=== PATIENT | female | born 1950 | race Caucasian/White ===

== ENCOUNTER → 2016-07-16 | Outpatient (CLI) | payer BC ==
[~2016-07-16] MED LIST: ACYC-223 PO; ASTN; CHOL1000 PO; FLUT0.15 NAE; FSMD/70 PO; GARLIC PO; LACTTAB4 PO; Magnesium PO; OMEG10007 PO; ZINCCAP5 PO; allergy shots IM
[2016-07-16 14:12] VITALS: BP 114/69; PULSE 68; TEMP 36.5; O2SAT 98
--- NOTE | 2016-07-16 16:24 | Radiation Oncology Follow-Up ---
Radiation Oncology Follow-Up Date of Visit July 16, 2016. Reason For Visit One-month follow-up in cancer survivorship care plan Radiation Completion Date 06/18/16 hypofractionation Diagnosis (1) Intraductal carcinoma of left breast Status: Acute Onset Date: 03/18/2016 Stage: 0 Permanent Comment: Abnormal left breast mammogram Status post mammotome biopsy 03/18/2016 revealing DCIS grade 3 Estrogen receptor negative and progesterone receptor negative Status post left breast partial mastectomy 04/14/2016 Stage pTis NX MX G3 Status post completion of radiation therapy 06/18/2016 she received 5130 cGy. Utilizing hypo-fractionation. Last Edited By: Valerie Samaniego on Jun 29, 2016 11:12 History of Present Illness Ms. Mullins is a 65-year-old female with a possible remote family history of breast cancer. She has been followed with screening mammograms. Her most recent bilateral digital screening mammogram was on 03/13/2016. In the left breast at the 12 o'clock position a group of faint calcifications were seen on the CC view which were not evident on prior exams. They recommended Spot magnification views for further evaluation. Patient went to [facility] for further evaluation and diagnostic workup under the care of Dr. Lesa Alfonso. On 03/18/2016 the patient underwent a diagnostic mammogram of the left breast. This showed amorphous and mildly pleomorphic calcifications with grouped/clustered distribution seen in the left breast at the 12 o'clock position posterior depth. These were suspicious and a core biopsy was recommended for further evaluation. On 03/18/2016 patient underwent a mammotome biopsy of the left breast in the area of visible calcifications which revealed ductal carcinoma in situ, high nuclear grade without evidence of invasive carcinoma. The microcalcifications were associated with DCIS and benign ducts. A second mammotome biopsy from the left breast in an area without calcifications also revealed ductal carcinoma in situ, high nuclear grade without evidence of invasive carcinoma. Microcalcifications were also noted. Estrogen receptors were evaluated and were negative. Progesterone receptors were evaluated and were negative. The maximum size on the biopsy was 0.42 cm the architectural type was solid with comedo necrosis. Accession #: [id number]. Patient went on to have bilateral breast MRIs with and without contrast performed on 04/02/2016. The breast tissues were extremely dense. A non-mass enhancement in a focal distribution with clumped internal enhancement was seen in the left breast at the 12:00 middle depth position located 5 cm from the nipple. The area of diagnosed DCIS was felt to be under estimated on the mammogram and better appreciated on the MRI. The entire area measured 2.0 x 1.3 x 1.1 cm and is located 5 cm from the nipple seen in the middle/posterior third of the breast. The right breast showed no suspicious enhancements, masses or other abnormalities. There was no axillary adenopathy appreciated. Patient met with Dr. Alfonso to discuss surgical treatment options. The patient opted to proceed with a breast conserving therapy consisting of a left breast partial mastectomy. This procedure was performed on 04/14/2016. The left partial mastectomy specimen confirmed residual ductal carcinoma in situ with high nuclear grade. The area of involvement measured 1.4 x 1.2 x 1.0 cm. The mass was 0.3 cm from the posterior margin, 1 cm from the anterior margin, 1.3 cm from the inferior margin, 1.0 cm from the superior margin, greater than 1.5 cm and the medial margin and greater than 1 cm from the lateral margins. Final pathology was therefore pTis pNx ER negative and WI negative. Accession #: [id number]. We were asked to see this patient to review with her the potential role of adjuvant radiation. She underwent a CT simulation and was found to be a candidate for hypo- fractionated therapy. Radiation was completed 06/18/2013 she received 5130 cGy. Interim History She has been doing well over the past month. The skin irritation has steadily improved without difficulty. She continues to have a dark discoloration to the skin. She has noted no masses or tenderness and no change of the axilla. She said no swelling of her arm. She has been concerned about her diet. She is staying away from carbohydrates and sugars. She did lose 4 pounds. She has an irritation of the perineal area. She has been given prescriptions by her nurse practitioner as well as ENT for treatment of yeast infection. She has had previous left shoulder issues. She is having therapy and this is improving. Allergies Coded Allergies: Sulfa Antibiotics (Verified Allergy, Severe, Swelling, 05/06/16) Home Medications Scheduled Acyclovir (Zovirax), 800 MG PO BID Alendronate/Cholecalciferol (Fosamax+D 70MG/2800 Iu), 1 TABLET PO WK Azelastine Hcl (Astelin Nasal [place]), 1-2 SPRAYS NA BID Cholecalciferol (Vitamin D3), 10,000 UNITS PO DAILY Fish Oil ([place]-3), 1 CAP PO DAILY Fluticasone Propionate (Nasal) (Flonase Allergy Relief), 1 SPRAY MICHA DAILY Lactobacillus (Acidophilus), 1 TAB PO DAILY Zinc Gluconate (Zn-50), 1 CAP PO DAILY [Garlic Tab], 2-4 TABS PO DAILY [Magnesium], 2 TSP PO DAILY [allergy shots], 1 SYR IM UD Review of Systems Gastrointestinal: Symptoms: WNL Oral: Symptoms: No Problems Respiratory: Symptoms: WNL Urinary: Symptoms: WNL Skin: Symptoms: No Problems Breast: Right Upper Arm Measurement: 27.3 Right Mid Arm Measurement: 23.5 Right Wrist Measurement: 15.5 Left Upper Arm Measurement: 27.0 Left Mid Arm Measurement: 23.0 Left Wrist Measurement: 15.5 Arm Dominence: Right Physical Exam Vital Signs Date Time Temp Pulse Resp B/P Pulse Ox O2 Delivery O2 Flow Rate FiO2 07/16/16 14:12 36.5 68 16 114/69 98 Fatigue: None General Appearance: no apparent distress Eyes: normal inspection, EOMI ENT: normal ENT inspection, hearing grossly normal Neck: no adenopathy, thyroid normal Respiratory/Chest: lungs clear, no respiratory distress Breast: Breast examination reveals a well-healed incision of the left breast. There is resolving hyperpigmentation. There are no masses or tenderness no axillary adenopathy. She is no skin retractions. She does have a sensory nipple. Using the [place] score cosmesis she has a good outcome. The right breast showed no masses or tenderness and no axillary adenopathy. Cardiovascular: regular rate, rhythm, no gallop, no murmur Genitourinary - Female: Evaluation of the buttock vaginal area showed no erythema or discharge. Extremities: no pedal edema Neurologic/Psychiatric: no motor/sensory deficits, alert, normal mood/affect Skin: warm/dry Assessment & Plan Plan: We discussed the hyperpigmentation. This will steadily resolve over time. We discussed the skin irritation of the perineum. This appears to be healing with her current treatment. Today we completed a cancer survivorship care plan. A copy of the document was given to the patient. Digital diagnostic mammograms were ordered. The left breast imaging will be performed in 2 months. She'll then have bilateral mammography in 8 months. She is instructed to continue breast self examinations. We asked her to return to our office in 6 months. She may call if she has any questions or concerns in the interim. She'll continue regular follow-up with and her primary care physician. Total Time In Follow-Up I spent 20 minutes speaking to the patient and performed an examination. I spent 20 minutes reviewing information, preparing the survivorship document, and completing this note. Copy To Marlen Fagan; Mariaelena Barker M.D.; Lesa Alfonso M.D.
== END | disposition home or self-care (01) ==
LOC: C.ONC 14:04
PROVIDERS: ATTEND Physician Assistant Medical
DX: Z08 Encounter for follow-up examination after completed treatment for malignant neoplasm (principal); Z92.3 Personal history of irradiation; Z85.3 Personal history of malignant neoplasm of breast

== ENCOUNTER → 2016-09-16 | Outpatient (CLI) | payer BC ==
[~2016-09-16] MED LIST changes: -ACYC-223 PO; +ACYC-251 PO
--- NOTE | 2016-09-16 13:11 | MAMMOGRAPHY REPORT ---
UNILATERAL LEFT DIGITAL DIAGNOSTIC MAMMOGRAM TOMOSYNTHESIS WITH CAD: 09/16/2016 CLINICAL HISTORY: History of left breast cancer status post lumpectomy March 2016 as well as radiat ion therapy. The patient reports no current complaints. TECHNIQUE: Breast tomosynthesis in addition to standard 2D mammography was performed. Current study was also evaluated with a Computer Aided Detection (CAD) system. Left CC and MLO 2-D and tomosynthes is images and spot magnification left CC and ML views were obtained. COMPARISON: Comparison is made to exams dated: 03/18/2016 stereotactic biopsy, 03/18/2016 mammogram - [facility] 03/13/2016 mammogram, 03/11/2015 mammogram, and 03/05/2014 mammogra m - [facility]. BREAST COMPOSITION: The tissue of the left breast is heterogeneously dense, which may obscure small masses. FINDINGS: There are new post surgical changes in the left 12:00 breast status post lumpectomy, includ ing new density, architectural distortion, and surgical clips at the lumpectomy bed. A linear scar m arker denotes a scar on the left superior breast. The remainder of the left breast is stable compare d to prior exams, without suspicious masses, calcifications, or areas of architectural distortion not ed. Scattered benign-appearing calcifications are stable compared to multiple prior exams including the 2010 and 2009 exams. IMPRESSION: ACR-BI-RADS CATEGORY 3: PROBABLY BENIGN Expected posttreatment changes in the left breast, without mammographic evidence of malignancy in the left breast. Recommend bilateral diagnostic mammograms in 6 months, to reevaluate the left breast p osttreatment changes and for routine mammography of the right breast. The patient has been verbally notified of the results. Approximately 10% of breast cancers are not detected with mammography. A negative mammographic report should not delay biopsy if a clinically suggestive mass is present. Sheila Bishop M.D. ah/:09/16/2016 11:16:13 Associate Store Manager: Zulema PÉREZ([place])(M), [facility] letter sent: Personal History 3 BI-RADS Code: ACR-BI-RADS Category 3: Probably Benign
== END | disposition home or self-care (01) ==
LOC: C.MAMM 10:36
PROVIDERS: ATTEND Physician Assistant Medical
DX: D05.12 Intraductal carcinoma in situ of left breast (principal)

== ENCOUNTER → 2016-12-29 | Outpatient (CLI) | payer BC | END | disposition home or self-care (01) | LOC: C.LAB 08:57 | PROVIDERS: ATTEND Nutritionist | DX: R53.83 Other fatigue (principal) ==

== ENCOUNTER → 2017-01-21 | Outpatient (CLI) | payer BC ==
[~2017-01-21] MED LIST changes: +ACYC-223 PO; -ACYC-251 PO
[2017-01-21 14:26] VITALS: BP 106/68; PULSE 72; TEMP 36.7; O2SAT 94
--- NOTE | 2017-01-21 16:16 | Radiation Oncology Follow-Up ---
Radiation Oncology Follow-Up Date of Visit Jan 21, 2017. Reason For Visit Six-month follow-up Radiation Completion Date 06/18/16 Diagnosis (1) Intraductal carcinoma of left breast Status: Resolved Onset Date: 03/18/2016 Stage: 0 Permanent Comment: Abnormal left breast mammogram Status post mammotome biopsy 03/18/2016 revealing DCIS grade 3 Estrogen receptor negative and progesterone receptor negative Status post left breast partial mastectomy 04/14/2016 Stage pTis NX MX G3 Status post completion of radiation therapy 06/18/2016 she received 5130 cGy. Utilizing hypo-fractionation. Last Edited By: Valerie Samaniego on Jun 29, 2016 11:12 History of Present Illness Ms. Neely does not have a family history of breast cancer. She underwent routine bilateral screening mammograms. On 07/25/2015 there were no mammographic evidence of malignancies and was given a BI-RADS Category 2 with recommended repeat in one year. On 07/27/2016 patient underwent her annual screening. This showed an asymmetry in the upper outer middle one third of the right breast. Spot compression views and possible ultrasound were recommended. On 08/05/2016 patient underwent a unilateral right digital diagnostic mammogram and targeted right breast ultrasound. The spot compression views of the right upper outer quadrant demonstrated a persistent irregular 0.5 x 0.7 cm mass with associated architectural distortion in the upper outer middle one third of the right breast. Targeted ultrasound was performed at the upper outer quadrant of the right breast including the 12:00 axis. In the 11:30 position of the breast 2 cm from the nipple was a subtle ill-defined hypoechoic mass with possible associated architectural distortion measuring 3.7 x 3.4 x 5.7 mm. This was indeterminate and was given a BI-RADS Category 4B with recommended biopsy. On 08/25/2016 the patient underwent ultrasound-guided biopsies of the right breast. This was of the 5 mm ill-defined hypoechoic spiculated mass seen at the 11:30 position of the right breast. This revealed an infiltrating ductal carcinoma grade 2 of 3 with no in situ component identified. There was no perineural or lymphovascular space invasion identified. Estrogen receptors were positive (90%, strong). Progesterone receptors were positive (30%, moderate). HER-2/jamal was equivocal (2+). The stain for the HER-2/jamal showed complete membrane staining in the majority of cells but strong complete membrane staining is present in less than 10% of the cells. This was interpreted as equivocal. HER-2/jamal was evaluated by FISH analysis. Unfortunately the tumor cells were also equivocal for HER-2/jamal amplification by FISH analysis. Recommendation was to repeat this test on the final surgical pathologic specimen. Case: [id number]. Patient was seen by Dr. Mann reviewed treatment options with the patient. The decision was made to proceed with breast conserving therapy. Therefore patient was scheduled for a right breast partial mastectomy and sentinel node biopsy on 09/04/2016. The single sentinel lymph node was identified and was benign. The partial mastectomy specimen identified residual infiltrating ductal carcinoma. The tumor measured 1.0 x 0.7 x 0.6 cm. This was a Chrissy grade 2 of 3 lesion. There was no DCIS or LCIS identified. There was no lymphovascular invasion appreciated. The margins were negative for invasive carcinoma. The tumor extended to within 0.4 cm of the deep margin. The case was reevaluated for HER-2/jamal overexpression by FISH analysis. The tumor cells were again equivocal for HER-2/jamal oncogene amplification by FISH. Case: [id number]. The final AJCC pathologic staging was therefore a pt1b pN0(sn- ), ER positive, GA positive and HER-2/jamal equivocal. Oncotype DX score was found to be 17. Decision was to proceed then with radiation therapy. She had a CT simulation and was found to be a candidate for hypo-fractionation. Her treatment was completed 12/22/2016 she received 5130 cGy. The patient was seen by Dr. Rick Gallardo for evaluation and discussion of the role of adjuvant systemic therapy. He noted that there were an increased number of HER-2 copies but the ratio was not elevated suggesting amplification of centromere 17 as well. He therefore discussed an expanded chromosome 17 analysis due to the HER-2 equivocal results. He also ordered an Oncotype DX test. The Oncotype DX was found to be 17. Status post completion of radiation therapy 12/22/2016. She received 5130 cGy utilizing hypo-fractionation. Interim History She's been doing well over the past 6 months. She has noted some mild scar tissue in the area of her incision. She is doing light massage 2 times per week. She goes to gym on a regular basis and feels that there is a tightness in the upper portion of the breast towards the shoulder. This is felt when she is doing stretching exercises. She had seen the chiropractor and had an adjustment. He also recommended stretching exercises. She is up-to-date on mammography. She also had a recheck visit with the breast surgeon. She feels that there is mild residual tanning. Allergies Coded Allergies: Sulfa Antibiotics (Verified Allergy, Severe, Swelling, 05/06/16) Home Medications Scheduled Acyclovir (Zovirax), 800 MG PO BID Alendronate/Cholecalciferol (Fosamax+D 70MG/2800 Iu), 1 TABLET PO WK Azelastine Hcl (Astelin Nasal [place]), 1-2 SPRAYS NA BID Cholecalciferol (Vitamin D3), 10,000 UNITS PO DAILY Fish Oil ([place]-3), 1 CAP PO DAILY Fluticasone Propionate (Nasal) (Flonase Allergy Relief), 1 SPRAY MICHA DAILY Lactobacillus (Acidophilus), 1 TAB PO DAILY Zinc Gluconate (Zn-50), 1 CAP PO DAILY [Magnesium], 2 TSP PO DAILY [allergy shots], 1 SYR IM UD Review of Systems Gastrointestinal: Symptoms: WNL Oral: Symptoms: No Problems Respiratory: Symptoms: WNL Urinary: Symptoms: WNL Skin: Symptoms: No Problems Breast: Right Upper Arm Measurement: 25.0 Right Mid Arm Measurement: 22.0 Right Wrist Measurement: 15.5 Left Upper Arm Measurement: 24.5 Left Mid Arm Measurement: 20.5 Left Wrist Measurement: 15.5 Arm Dominence: Right Physical Exam Vital Signs Date Time Temp Pulse Resp B/P (MAP) Pulse Ox O2 Delivery O2 Flow Rate FiO2 01/21/17 14:26 36.7 72 18 106/68 94 Fatigue: None General Appearance: no apparent distress Eyes: normal inspection, EOMI ENT: normal ENT inspection, hearing grossly normal Neck: no adenopathy, thyroid normal Respiratory/Chest: lungs clear, no respiratory distress, no accessory muscle use Breast: Breast examination reveals accessary nipple on the left. There is slight hyperpigmentation. There are no masses or tenderness no axillary adenopathy. She is no skin retractions or nipple changes. Using the [place] score cosmesis she has a good outcome. The right breast showed no masses or tenderness and no axillary adenopathy. Cardiovascular: regular rate, rhythm, no gallop, no murmur Extremities: no pedal edema Neurologic/Psychiatric: no motor/sensory deficits, alert, normal mood/affect Skin: warm/dry Pain Management Pain Location: None Patient Preferred Pain Scale: 0 - 10 Additional Studies Patient: [facility] Rec: [id number] Address[address]: [address] Address2: Acct ID: [id number] Date: 1950 Sex: F Ref Phy: Lesa Alfonso M.D. Att Phy: Valerie Samaniego PA-C Mariah Phy: Marlen Fagan Inter Phy: Sheila Bishop MD [facility] Zip: [place] [address] SC: [id number] Report #: [id number] Tobacco Feeder Catcher: MAVIS Diagnosis: LEFT BREAST CA/ S/P RADIATION Service Date: 09/16/16 MNE: [id number] Ordering Dr: Valerie Samaniego PA-C CC: Valerie Samaniego PA-C CONF: DICTATED BY: Sheila Bishop MD MAMMOGRAPHY REPORT UNILATERAL LEFT DIGITAL DIAGNOSTIC MAMMOGRAM TOMOSYNTHESIS WITH CAD: 09/16/2016 CLINICAL HISTORY: History of left breast cancer status post lumpectomy March 2016 as well as radiation therapy. The patient reports no current complaints. TECHNIQUE: Breast tomosynthesis in addition to standard 2D mammography was performed. Current study was also evaluated with a Computer Aided Detection (CAD ) system. Left CC and MLO 2-D and tomosynthesis images and spot magnification left CC and ML views were obtained. COMPARISON: Comparison is made to exams dated: 03/18/2016 stereotactic biopsy, 03/18/2016 mammogram - [facility] 03/13/2016 mammogram, mammogram, and 03/05/2014 mammogram - [facility]. BREAST COMPOSITION: The tissue of the left breast is heterogeneously dense, which may obscure small masses. FINDINGS: There are new post surgical changes in the left 12:00 breast status post lumpectomy, including new density, architectural distortion, and surgical clips at the lumpectomy bed. A linear scar marker denotes a scar on the left superior breast. The remainder of the left breast is stable compared to prior exams, without suspicious masses, calcifications, or areas of architectural distortion noted. Scattered benign-appearing calcifications are stable compared to multiple prior exams including the 2011 and 2010 exams. IMPRESSION: ACR-BI-RADS CATEGORY 3: PROBABLY BENIGN Expected posttreatment changes in the left breast, without mammographic evidence of malignancy in the left breast. Recommend bilateral diagnostic mammograms in 6 months, to reevaluate the left breast posttreatment changes and for routine mammography of the right breast. The patient has been verbally notified of the results. Approximately 10% of breast cancers are not detected with mammography. A negative mammographic report should not delay biopsy if a clinically suggestive mass is present. Sheila Bishop M.D. ah/:09/16/2016 11:16:13 Quick Sketch Artist: Zulema PÉREZ([place])(M), [facility] letter sent: Personal History 3 BI-RADS Code: ACR-BI-RADS Category 3: Probably Benign Dictated by: Sheila Bishop MD Signed by: Sheila Bishop MD Assessment & Plan Plan: Continue with scheduled mammography. Continue regular follow-up with her primary care provider as well as breast surgeon. She'll continue the right massage therapy to the area of scar tissue. She also continue stretching exercises for her shoulder and chest wall. We asked her to return to our office in 1 year. She may call if she has any questions or concerns in the interim. Total Time In Follow-Up I spent 20 minutes the need to the patient performing examination. I spent 15 minutes reviewing information in completing this note. Copy To Marlen Fagan; Mariaelena Barker M.D.; Lesa Alfonso M.D.
== END | disposition home or self-care (01) ==
LOC: C.ONC 14:13
PROVIDERS: ATTEND Physician Assistant Medical
DX: Z08 Encounter for follow-up examination after completed treatment for malignant neoplasm (principal); Z92.3 Personal history of irradiation; Z85.3 Personal history of malignant neoplasm of breast

== ENCOUNTER → 2017-03-01 | Outpatient (CLI) | payer BC ==
[~2017-03-01] MED LIST changes: -GARLIC PO
== END | disposition home or self-care (01) ==
LOC: C.PAPS 11:17
PROVIDERS: ATTEND Obstetrics & Gynecology
DX: Z01.419 Encounter for gynecological examination (general) (routine) without abnormal findings (principal)

== ENCOUNTER → 2017-03-19 | Outpatient (CLI) | payer BC ==
--- NOTE | 2017-03-19 14:38 | MAMMOGRAPHY REPORT ---
BILATERAL DIGITAL DIAGNOSTIC MAMMOGRAM TOMOSYNTHESIS WITH CAD: 03/19/2017 CLINICAL HISTORY: History of left breast cancer status post lumpectomy March 2016 as well as radiat ion therapy. The patient reports no current complaints. TECHNIQUE: Breast tomosynthesis in addition to standard 2D mammography was performed. Current study was also evaluated with a Computer Aided Detection (CAD) system. Bilateral CC and MLO 2-D and tomosy nthesis images and spot magnification left CC and ML views were obtained. COMPARISON: Comparison is made to exams dated: 09/16/2016 mammogram - [facility], localization, 03/18/2016 stereotactic biopsy, 03/18/2016 mammogram - [facility] 03/13/2016 mammogram, and 03/11/2015 mammogram - [facility]. BREAST COMPOSITION: The tissue of both breasts is heterogeneously dense, which may obscure small mas ses. FINDINGS: Again noted are postsurgical changes in the left superior breast at approximately 12:00 fr om prior lumpectomy, including stable density, architectural distortion, and surgical clips at the hailee mpectomy bed. A linear scar marker denotes a scar on the left superior breast. Spot magnification v iews of the left breast demonstrate stable scattered benign-appearing calcifications, as well as a sm all 1 mm cluster of benign-appearing calcifications within the left upper outer quadrant lateral and inferior to the lumpectomy bed which is stable dating back to at least the 2007 exam. No suspicious masses or clusters of microcalcifications are seen at the lumpectomy bed. The remainder of both breasts are stable compared to prior exams, without suspicious masses, calcific ations, or areas of architectural distortion noted. Other scattered bilateral benign-appearing calci fications are not significantly changed. IMPRESSION: ACR-BI-RADS CATEGORY 3: PROBABLY BENIGN Stable post treatment changes in the left breast, without mammographic evidence of malignancy in eith er breast. Recommend follow-up diagnostic tomosynthesis mammograms of the left breast in 6 months to reevaluate left breast posttreatment changes. The patient has been verbally notified of the results. Approximately 10% of breast cancers are not detected with mammography. A negative mammographic report should not delay biopsy if a clinically suggestive mass is present. Sheila Bishop M.D. /:03/19/2017 11:45:16 Allocations Clerk: Zulema Mas, [facility] letter sent: Personal History 3 BI-RADS Code: ACR-BI-RADS Category 3: Probably Benign
== END | disposition home or self-care (01) ==
LOC: C.MAMM 11:17
PROVIDERS: ATTEND Physician Assistant Medical
DX: C50.912 Malignant neoplasm of unspecified site of left female breast (principal)

== ENCOUNTER 2017-04-11 15:58 | Emergency (ER) | payer BC ==
[~2017-04-11] VITALS: Ht 162.6 cm; Wt 59.0 kg
[2017-04-11 16:13] VITALS: TEMP 37.1; Ht 162.6 cm; Wt 59.0 kg
[2017-04-11 16:18] VITALS: O2SAT 99
[2017-04-11 16:41] LABS: BASO % 0.5 %; BASO ABS # 0.02 K/uL (0-0.2); EOS % 3.6 %; EOS ABS # 0.15 K/uL (0-0.5); HEMATOCRIT 38.7 % (37-47); HEMOGLOBIN 12.9 g/dL (12.0-16.0); IG# 0.01 K/uL (0.00-0.02); LYMPH % 31.9 %; LYMPH ABS # 1.32 K/uL (1.2-3.4); MEAN CELL VOLUME 100.8 fL (80-100); MEAN CORPUSCULAR HEMOGLOBIN 33.6 pg (25-34); MEAN CORPUSCULAR HGB CONC 33.3 g/dl (32-36); MEAN PLATELET VOLUME 10.1 fL (7.4-10.4); MONO % 12.8 %; MONO ABS # 0.53 K/uL (0.11-0.59); NEUT ABS # 2.11 K/uL (1.4-6.5); PLATELET COUNT 248 K/uL (130-400); RED CELL DISTRIBUTION WIDTH CV 14.6 % (11.5-14.5); RED CELL DISTRIBUTION WIDTH SD 53.9 fL (36.4-46.3); WHITE BLOOD COUNT 4.14 K/uL (4.8-10.8)
--- NOTE | 2017-04-11 16:41 | DIAGNOSTIC IMAGING REPORT ---
CHEST ONE VIEW PORTABLE HISTORY: Atypical chest pain COMPARISON: None. FINDINGS: The lungs are clear. Cardiac silhouette is normal in size. No pleural effusions. No pneumothorax. IMPRESSION: No acute process. Electronically signed by: Waldo Savage M.D. 04/11/2017 4:39 PM Dictated Date/Time: 04/11/2017 4:36 PM
[2017-04-11] MEDS ORDERED: VALA1TAB31 PO (16:55)
[2017-04-11] MEDS ORDERED: ZINC1TAB PO (16:55)
--- NOTE | 2017-04-11 16:56 | EMERGENCY ROOM VISIT NOTE ---
History Report prepared by Anh: Komal Gabriel Under the Supervision of: Dr. Leatha Prince M.D. First contact with patient: 16:02 Chief Complaint: CHEST PAIN Stated Complaint: CHEST PAIN History of Present Illness The patient is a 66 year old female who presents to the Emergency Room with complaints of intermittent chest pain starting yesterday. She reports that it feels like a tightness. The patient states it started yesterday when at the gym and today while hiking. She states both times she felt nauseous and short of breath. She reports that she went to the [facility] walk in clinic where they gave her Aspirin and Nitroglycerin before sending her here. The patient denies this ever happening before, being diabetic, smoking, pain with a deep breath, and family history of heart disease. The patient notes a history of left sided breast cancer and a lumpectomy. She states that the pain is on the same side that she had radiation treatments. Source of History: patient Onset: yesterday Position: chest Quality: other (tightness) Timing: intermittent Modifying Factors (Worsening): exertion Associated Symptoms: + SOB, + nausea Note: The patient denies pain with a deep breath. Review of Systems See HPI for pertinent positives & negatives. A total of 10 systems reviewed and were otherwise negative. Past Medical & Surgical Medical Problems: (1) Intraductal carcinoma of left breast Surgical Problems: (1) H/O lumpectomy Family History Patient reports no known family medical history. Social History Smoking Status: Never Smoker Marital Status: Housing Status: lives with significant other Current/Historical Medications Scheduled Cholecalciferol (Vitamin D3), 1,000 INTER.UNIT PO DAILY Fish Oil ([place]-3), 1 CAP PO 3XWK Fluticasone Propionate (Nasal) (Flonase Allergy Relief), 2 SPRAYS MICHA DAILY Lactobacillus (Acidophilus), 1 TAB PO DAILY Valacyclovir Hcl (Valtrex), 1 GM PO DAILY Zinc Gluconate (Zinc), 50 MG PO DAILY [Magnesium], 1 TSP PO BID Scheduled PRN Azelastine Hcl (Astelin Nasal [place]), 1-2 SPRAYS NA BID PRN for Allergy Symptoms Allergies Coded Allergies: Sulfa Antibiotics (Verified Allergy, Severe, Swelling, 05/06/16) Physical Exam Vital Signs Date Time Temp Pulse Resp B/P (MAP) Pulse Ox O2 Delivery O2 Flow Rate FiO2 04/11/17 19:05 70 18 115/81 99 04/11/17 17:57 67 20 131/81 100 Room Air 04/11/17 16:18 99 Room Air 04/11/17 16:13 37.1 65 20 111/72 97 Room Air 04/11/17 16:13 97 Room Air 04/11/17 16:11 69 Physical Exam Vital signs reviewed. General: Well-appearing, in no significant distress. HEENT: No scleral icterus, PERRLA, neck supple. Atraumatic. Cardiovascular: Regular rate and rhythm, no extra sounds. Pulmonary: Clear to auscultation bilaterally, normal work of breathing. Abdomen: Soft, nontender, nondistended, positive bowel sounds. Musculoskeletal: Atraumatic, no peripheral edema. Neurologic: Patient awake alert and oriented x 3, full strength in all 4 extremities. Cranial nerves 2 through 12 grossly intact. Skin: Warm, dry, no rash Medical Decision & Procedures ER Provider Diagnostic Interpretation: Radiology results as stated below per my review and radiologist interpretation: CHEST ONE VIEW PORTABLE HISTORY: Atypical chest pain COMPARISON: None. FINDINGS: The lungs are clear. Cardiac silhouette is normal in size. No pleural effusions. No pneumothorax. IMPRESSION: No acute process. Electronically signed by: Waldo Savage M.D. 04/11/2017 4:39 PM Dictated Date/Time: 04/11/2017 4:36 PM Laboratory Results 04/11/17 16:30 Red Blood Count 3.84, Mean Corpuscular Volume 100.8, Mean Corpuscular Hemoglobin 33.6, Mean Corpuscular Hemoglobin Concent 33.3, Mean Platelet Volume 10.1, Neutrophils (%) (Auto) 51.0, Lymphocytes (%) (Auto) 31.9, Monocytes (%) ( Auto) 12.8, Eosinophils (%) (Auto) 3.6, Basophils (%) (Auto) 0.5, Neutrophils # (Auto) 2.11, Lymphocytes # (Auto) 1.32, Monocytes # (Auto) 0.53, Eosinophils # ( Auto) 0.15, Basophils # (Auto) 0.02 04/11/17 16:30 Test 04/11/17 16:30 04/11/17 17:57 04/11/17 18:11 White Blood Count 4.14 K/uL (4.8-10.8) Red Blood Count 3.84 M/uL (4.2-5.4) Hemoglobin 12.9 g/dL (12.0-16.0) Hematocrit 38.7 % (37-47) Mean Corpuscular Volume 100.8 fL (80-100) Mean Corpuscular Hemoglobin 33.6 pg (25-34) Mean Corpuscular Hemoglobin Concent 33.3 g/dl (32-36) Platelet Count 248 K/uL (130-400) Mean Platelet Volume 10.1 fL (7.4-10.4) Neutrophils (%) (Auto) 51.0 % Lymphocytes (%) (Auto) 31.9 % Monocytes (%) (Auto) 12.8 % Eosinophils (%) (Auto) 3.6 % Basophils (%) (Auto) 0.5 % Neutrophils # (Auto) 2.11 K/uL (1.4-6.5) Lymphocytes # (Auto) 1.32 K/uL (1.2-3.4) Monocytes # (Auto) 0.53 K/uL (0.11-0.59) Eosinophils # (Auto) 0.15 K/uL (0-0.5) Basophils # (Auto) 0.02 K/uL (0-0.2) RDW Standard Deviation 53.9 fL (36.4-46.3) RDW Coefficient of Variation 14.6 % (11.5-14.5) Immature Granulocyte % (Auto) 0.2 % Immature Granulocyte # (Auto) 0.01 K/uL (0.00-0.02) Anion Gap 8.0 mmol/L (3-11) Est Creatinine Clear Calc Drug Dose 48.1 ml/min Estimated GFR () 69.2 Estimated GFR (Non- 59.7 BUN/Creatinine Ratio 18.4 (10-20) Calcium Level 9.0 mg/dl (8.5-10.1) Total Bilirubin 0.3 mg/dl (0.2-1) Direct Bilirubin < 0.1 mg/dl (0-0.2) Aspartate Amino Transf (AST/SGOT) 23 U/L (15-37) Alanine Aminotransferase (ALT/SGPT) 26 U/L (12-78) Alkaline Phosphatase 39 U/L (45-117) Total Creatine Kinase 111 U/L (26-192) Creatine Kinase MB 1.5 ng/ml (0.5-3.6) Creatine Kinase MB Ratio 1.4 (0-3.0) Total Protein 7.3 gm/dl (6.4-8.2) Albumin 3.6 gm/dl (3.4-5.0) Bedside Troponin I < 0.030 ng/ml (0-0.045) D-Dimer 200 ug/L FEU (0-500) Laboratory results per my review. ECG Indication: chest pain Rate (beats per minute): 70 Rhythm: normal sinus Findings: no acute ischemic change, no ectopy Change: I interpreted the patient's EKG. ED Course 1613: Past medical records reviewed. The patient was evaluated in room A2. A complete history and physical examination was performed. 184: Upon reevaluation, the patient appeared to have improvement of her symptoms. I discussed findings with her. She verbalized agreement of the treatment plan. The patient was discharged home. Medical Decision Differential diagnosis: Differential diagnoses includes acute coronary syndrome, pulmonary embolus, aortic dissection, musculoskeletal pain, pneumonia, pleural effusion, pneumothorax, gastritis, peptic ulcer disease. This patient was evaluated and appeared to be in no significant distress. IV access was obtained and laboratory work was drawn. The patient was placed on the front desk monitor and found to be in a normal sinus rhythm. Patient's chest x -ray is clear. EKG reveals no acute ischemic changes. Patient was given aspirin and nitroglycerin prior to arrival at the walk-in clinic. Laboratory work reveals 2 negative troponins. D-dimer is normal. The patient was reevaluated and was feeling well. She agreed to avoid strenuous exercise until she is reevaluated by her PCP. The patient will return to the emergency department for worsening of symptoms or any medical concerns. Medication Reconcilliation Current Medication List: was personally reviewed by me Blood Pressure Screening Patient's blood pressure: Normal blood pressure Blood pressure disposition: Did not require urgent referral Impression Primary Impression: Substernal chest pain Scribe Attestation The scribe's documentation has been prepared under my direction and personally reviewed by me in its entirety. I confirm that the note above accurately reflects all work, treatment, procedures, and medical decision making performed by me. Departure Information Dispostion Home / Self-Care Referrals Mariaelena Barker M.D. (PCP) Forms Call Back Authorization, HOME CARE DOCUMENTATION FORM, IMPORTANT VISIT INFORMATION Patient Instructions My [facility] Additional Instructions Diagnosis: Substernal chest pain Aspirin 81 mg daily. Please follow-up with your physician this week for reevaluation. Consider cardiac stress testing. Avoid any strenuous exercise until you are evaluated by your physician. If you experienced chest pain, stop activity and return to the emergency department. Return to the ER for worsening of symptoms or any medical concerns.
[2017-04-11 17:04] LABS: ALBUMIN 3.6 gm/dl (3.4-5.0); ALT/SGPT 26 U/L (12-78); BLOOD UREA NITROGEN 18 mg/dl (7-18); CARBON DIOXIDE 27 mmol/L (21-32); CREATININE 0.98 mg/dl (0.60-1.20); GLUCOSE 97 mg/dl (70-99); POTASSIUM 4.1 mmol/L (3.5-5.1); SODIUM 139 mmol/L (136-145)
[2017-04-11 17:09] LABS: ALKALINE PHOSPHATASE 39 U/L (45-117); AST/SGOT 23 U/L (15-37); CKMB 1.5 ng/ml (0.5-3.6); TOTAL PROTEIN 7.3 gm/dl (6.4-8.2)
[2017-04-11 19:05] VITALS: BP 115/81; PULSE 70; O2SAT 99
== END 2017-04-11 19:07 | disposition home or self-care (01) ==
LOC: EDBD 15:58 → C.EDA 15:59
DX: R07.2 Precordial pain (principal); R06.02 Shortness of breath; Z85.3 Personal history of malignant neoplasm of breast; Z92.3 Personal history of irradiation; Z98.890 Other specified postprocedural states